=== PATIENT | female | born 1955 | race Caucasian/White ===

== ENCOUNTER 2025-04-10 06:46 | Observation (INO) ==
--- NOTE | 2025-03-05 14:58 | PAT Medication Instructions ---
Medication Instructions Date of Service March 05, 2025 Home Medications acetaminophen 500 mg tablet (Tylenol Extra Strength) 500 mg PO BID atorvastatin 20 mg tablet 20 mg PO QAM buspirone 7.5 mg tablet 7.5 mg PO BID turmeric 400 mg capsule 400 mg PO UD duloxetine 20 mg capsule,delayed release 30 mg PO QAM magnesium 500 mg tablet 15 mg PO HS multivitamin 1 tab PO .QOD nystatin 1 billion unit oral powder 1 unit PO DAILY STOP taking 2 weeks before surgery (or as soon as possible if surgery is within 2 weeks) turmeric 400 mg capsule 400 mg PO UD STOP taking 24 hours before surgery nystatin 1 billion unit oral powder 1 unit PO DAILY DO NOT take the morning of surgery multivitamin 1 tab PO .QOD Take morning of surgery With a small sip of water, OTHERWISE NOTHING TO EAT OR DRINK AFTER MIDNIGHT: acetaminophen 500 mg tablet (Tylenol Extra Strength) 500 mg PO BID atorvastatin 20 mg tablet 20 mg PO QAM buspirone 7.5 mg tablet 7.5 mg PO BID duloxetine 20 mg capsule,delayed release 30 mg PO QAM Take evening before surgery acetaminophen 500 mg tablet (Tylenol Extra Strength) 500 mg PO BID buspirone 7.5 mg tablet 7.5 mg PO BID magnesium 500 mg tablet 15 mg PO HS Other Notes If you have any questions please call us at [phone] or [phone] or [phone] or [phone]
--- NOTE | 2025-03-18 09:08 | Anesthesiology Consultation ---
Date of Service March 18, 2025 Assessment & Plan (1) Encounter for pre-operative examination: - hyponatremia at 128. Patient made aware at [facility] would need PCP optimization response if Na was below 130 and she states she checks the portal-optimization form to be faxed to [facility] PCP. Surgeon's office made aware. - PCP office visit 02/28/25 [facility]: "...persistent rash in skin folds...below her belly and under her breasts...intertrigo...nystatin powder recommended for its different antifungal properties...hip replacement..." - patient requests a private room if possible and to not be last case of the day. I listened to her requests and advised private rooms cannot be determined until day of surgery and that case order is to surgeon's determination. I advised I sent messages to the OR and surgeon's office for both requests. She expressed appreciation, denied additional questions or concerns. Chart Review Chart Review: Pending: Refer to Additional Notes / Consult section and Patient seen in Pre Admission Testing Teaching & Discussion Pre-Anesthesia Teaching/Discussion Notes: Instructed NPO after midnight before surgery, except medications with 15 cc of water. Medication instructions provided according to the [facility] guidelines. History Surgery Operation Date: 04/10/25 07:00 Proposed Procedures p Right Total Hip Arthroplasty - Flakito Webber MD Height/Weight Height: 5 ft 4 in Weight: 94 kg Allergies Allergy/AdvReac Type Severity Reaction Status Date / Time NSAIDS (Non-Steroidal AdvReac Severe patient Verified 03/18/25 10:25 Anti-Inflamma states was told to limit use after [facility] Medications Home Medications Medication Instructions Recorded Confirmed Last Taken acetaminophen 500 mg tablet 500 mg PO BID 06/25/24 03/03/25 07/16/24 (Tylenol Extra Strength) atorvastatin 20 mg tablet 20 mg PO QAM 06/25/24 03/03/25 07/16/24 buspirone 7.5 mg tablet 7.5 mg PO BID 06/25/24 03/03/25 07/16/24 turmeric 400 mg capsule 400 mg PO UD 06/25/24 03/03/25 07/16/24 duloxetine 20 mg capsule,delayed 30 mg PO QAM 01/10/25 03/03/25 Unknown release magnesium 500 mg tablet 15 mg PO HS 03/03/25 03/03/25 Unknown multivitamin 1 tab PO .QOD 03/03/25 03/03/25 Unknown nystatin 1 billion unit oral powder 1 unit PO DAILY 03/03/25 03/03/25 Unknown Additional Notes: She was instructed to continue oral prednisone as prescribed by PCP for rash. Surgeon's office made aware. Past Medical History Medical History Anemia mild- pt unsure if still anemic Anxiety Arthritis Depression Dyslipidemia History of COVID-19 (~2020) Jul 2021-denies hospitalization-symptoms resolved History of MRSA infection (~2004) after basal cell cancer excision of back Hx of nonmelanoma skin cancer multiple-removed Hyponatremia chronic, monitored by PCP Rash groin area and abdominal/ breast skin folds, r/t heat, improving since started nystatin 03/07/25 visit w/ pcp-resolved as of 03/18/25 per pt Patient denies h/o stroke, seizures, heart attack, heart failure, DM, HTN, blood clots/DVTs or blood transfusions. Exercise / Class Metabolic Activity III < 4 Walking/Shop/Light housework (denies chest discomfort or shortness of breath with usual activities) Past Family History Family History Grandmother Diabetes Past Surgical History Surgical History History of blepharoplasty History of bronchoscopy 2018 History of colonoscopy History of tonsillectomy History of total bilateral knee replacement (~2002) Hx of left cataract extraction Hx of right cataract extraction [place] teeth extracted Past Anesthesia History No Hx of Anesthesia Complications and No Family Hx of Anesthesia Complications History of PONV No Hx of PONV and No Hx of Motion Sickness Social History Smoking Status: Never smoker Do You Dip or Chew Tobacco: No Hx Alcohol Use: Yes Alcohol type: wine alcohol intake frequency: 0-2 drinks per day Hx Substance Use: No substance use type: does not use Review of Systems Snoring, denies witnessed apneas. Patient denies chest pain, shortness of breath, dyspnea on exertion, reflux, fever, chills, cough, wheezing, or palpitations. Physical Exam Vital Signs Vitals BP 131/79 P 71 TEMP 36.8 SP02 100% on RA RESP 18 Physical Patient resting comfortably in chair in no acute distress, alert and oriented, responding appropriately throughout visit Full cervical extension range of motion without pain TMD 3.5 finger breadths Mallampati Score 2 Dentition: several crowns and implants, denies chipped or loose teeth, or bridges Lungs: normal respiratory effort. Good air movement, clear throughout to auscultation, no adventitious breath sounds Cardiac: regular rate and rhythm, no murmurs noted Carotid arteries: negative bruit bilat Lab Results Anesthesia Preop Results Results Anesthesia Widget: WBC 3.69 K/ul (4.8-10.8) L 03/18/25 Hgb 11.9 g/dl (12.0-16.0) L 03/18/25 Hct 34.5 % (37.0-47.0) L 03/18/25 Plt 252 K/uL (130-400) 03/18/25 Na 128 mmol/L (136-145) L 03/18/25 K 4.7 mmol/L (3.5-5.1) 03/18/25 Cl 94 mmol/L (98-107) L 03/18/25 CO2 30 mmol/L (21-32) 03/18/25 BUN 16 mg/dl (6-23) 03/18/25 Creat 0.84 mg/dl (0.6-1.2) 03/18/25 Glucose Level 92 mg/dl (70-99(Fasting)) 03/18/25 PT 10.1 Seconds (9.0-12.0) 03/18/25 PTT 28 Seconds (21-31) 03/18/25 INR 0.9 (0.9-1.1) 03/18/25 Blood Type O Positive 03/18/25 Antibody Screen NEGATIVE 03/18/25 Testing Electrocardiogram Date: 01/21/25 NSR, rate 75 bpm Chest X-Ray Date: 03/18/25 No acute cardiopulmonary findings. Other Testing Abdomen pelvis CT 10/09/24 No acute abnormality is appreciated Advanced osteoarthritis of the right hip joint with irregularity and osteonecrosis about the articular surface of the femoral head with subchondral cyst and subchondral sclerosis, significantly worsened than 06/21/2019. L4-5 and L5-S1 degenerative disc disease. Mild chronic anterolisthesis L3 on L4. New mild anterolisthesis L4 on L5.
--- NOTE | 2025-04-04 18:00 | History & Physical Report ---
Date of Service April 04, 2025 Assessment & Plan (1) Arthritis of right hip: 69-year-old female with advanced right hip arthritis status post bilateral knee replacements along with history of ankle arthritis. She has failed conservative treatment. A truly affecting her quality life and ability maintain an active lifestyle. She like to have her hip fixed. Plan: We are going to take her to the operating room do a right total hip replacement for the risks benefits of this procedure planed. Informed consent was obtained. Will plan on using aspirin for DVT prophylaxis. She does live by herself and may need some help for a period of time. Get social services assistant involved postoperatively. She does have a history of hyponatremia and will have to [facility] follow her sodium closely. (2) Nonmelanoma skin cancer: (3) Dyslipidemia: (4) Depression: (5) Anxiety: (6) Anemia: History of Present Illness Chief Complaint: . Right hip pain. Primary Care Provider: Bianca Woo DO . Patient 69-year-old female [place] who presents for treatment of her right hip. She has a year history of increasing right hip pain discomfort describes gotten worse over time. She does have a history of bilateral knee replacement done about 20 years ago. These are done pretty well. She also has some chronic ankle problems and managed by special surgery. Over the past year she developed increased pain discomfort in her right hip. She enjoys walking but less able to do this due to groin and thigh in the leg pain. She has been through extensive conservative treatment including chiropractic treatment and physical therapy without any relief. She is looking to have her hip fixed. Allergies Allergy/AdvReac Type Severity Reaction Status Date / Time NSAIDS (Non-Steroidal AdvReac Severe patient Verified 03/18/25 10:25 Anti-Inflamma states was told to limit use [facility] Home Medications Medication Instructions Recorded Confirmed Type acetaminophen 500 mg tablet 500 mg PO BID 06/25/24 03/03/25 History (Tylenol Extra Strength) atorvastatin 20 mg tablet 20 mg PO QAM 06/25/24 03/03/25 History buspirone 7.5 mg tablet 7.5 mg PO BID 06/25/24 03/03/25 History turmeric 400 mg capsule 400 mg PO UD 06/25/24 03/03/25 History duloxetine 20 mg capsule,delayed 30 mg PO QAM 01/10/25 03/03/25 History release magnesium 500 mg tablet 15 mg PO HS 03/03/25 03/03/25 History multivitamin 1 tab PO .QOD 03/03/25 03/03/25 History nystatin 1 billion unit oral powder 1 unit PO DAILY 03/03/25 03/03/25 History Past Med/Surg History Problem List Arthritis of right hip Nonmelanoma skin cancer (Chronic) Actinic keratosis (Chronic) Medical History SIADH (syndrome of inappropriate ADH production) History of MRSA infection (~2004) after basal cell cancer excision of back Rash groin area and abdominal/ breast skin folds, r/t heat, improving since started nystatin 03/07/25 visit w/ pcp-resolved as of 03/18/25 per pt Dyslipidemia Hx of nonmelanoma skin cancer multiple-removed Arthritis Depression Anxiety Anemia mild- pt unsure if still anemic History of COVID-19 (~2020) Jul 2021-denies hospitalization-symptoms resolved Surgical History History of bronchoscopy 2018 Hx of left cataract extraction Hx of right cataract extraction History of colonoscopy [place] teeth extracted History of blepharoplasty History of total bilateral knee replacement (~2002) History of tonsillectomy Family History Grandmother Diabetes Social History Smoking Status: Never smoker Second Hand Exposure: No; Do You Dip or Chew Tobacco: No; Hx Alcohol Use: Yes Alcohol type: wine Hx Substance Use: No Preferred Language: Dominican Communication Ability: Effective Hearse Driver Required: No Beliefs That Will Affect Care: None Current Living Situation: Alone Feels Safe at Home: Yes Assistive Devices: Cane Review of Systems All systems reviewed & are unremarkable except as noted in HPI & below. Physical Exam . Physical examination was a pleasant middle-age female looks in pretty good health. Examination of the right hip reveals patient ambulates with a limp. Leg lengths appear pretty equal. Maybe half a centimeter short on the right side. Got very stiff hip with internal rotation to neutral which recreates her pain. Negative straight leg raise. She is neurologically intact. Knee replacement on the right shows a well-healed incision. No swelling. Range of motion 0-1 20. Neurologically intact. Constitutional WD/WN, vitals as above Respiratory normal respiratory effort, lungs clear to auscultation Cardiovascular RRR, no murmur, no edema Gastrointestinal (Abdomen) normal bowel sounds, soft, nontender, no hepatosplenomegaly Results & Data Results & Data Laboratory Results . Diagnostic Findings . X-ray of the right hip were reviewed. That shows advanced right hip arthritis. She got complete loss of the superior joint space. She has cystic changes on both sides of the joint. PG Care Time/CCT Total # of Minutes Spent Total Time Spent with Patient: Total time spent is greater than 50% in coordination of care (as documented) at patient's floor/unit and/or counseling patient: Coding Level of Care Code None Diagnoses Arthritis of right hip M16.11 Nonmelanoma skin cancer C44.90 Dyslipidemia E78.5 Depression F32.A Anxiety F41.9 Anemia D64.9
[~2025-04-10 06:46] MED LIST: BUPIVACAINE 0.5 % 5 MG/1 ML PF 10ML VIAL ONE
--- NOTE | 2025-04-10 07:17 | History & Physical Bridge Note ---
Date of Service April 10, 2025 History & Physical Bridge Note I have examined the patient, reviewed the History & Physical and in the interval since the performance of the History & Physical I have noted the following changes of clinical significance: no changes noted
[2025-04-10] MEDS: LR 500ML BOLUS, THEN 15ML/HR IV SCH (07:34)
[2025-04-10] MEDS: ACETAMINOPHEN 500 MG TAB PO SCH ×2 (07:34→14:43)
[2025-04-10] MEDS: LR 60ML/HR IV SCH (07:34)
[2025-04-10] MEDS: FAMOTIDINE 20 MG TAB PO SCH (07:34)
[2025-04-10] MEDS: dexAMETHasone**PF** 10 MG/ML VIAL ONE (07:35)
[2025-04-10] MEDS ORDERED: MIDAZOLAM HCL 1 MG/ML 2ML VIAL ONE (07:52)
[2025-04-10] MEDS ORDERED: PROPOFOL IV EMULSION 10 MG/ML 20 ML VIAL IV ONE ×2 (07:53→10:50)
[2025-04-10] MEDS ORDERED: ATROPINE SULFATE 0.1 MG/ML 10ML SYR IV PRN (08:20)
[2025-04-10] MEDS ORDERED: ONDANSETRON INJ 2 MG/ML 2 ML VIAL IV PRN ×2 (08:20→12:39)
[2025-04-10] MEDS: TRANEXAMIC ACID / 0.7% NACL 1,000 MG/100 ML BAG IV ONE (09:16)
[2025-04-10] MEDS ORDERED: PHENYLEPHRINE 100MCG/ML 5ML SYR ONE ×2 (09:54→10:38)
[2025-04-10] MEDS: ROPIV 0.5% 246mg, Ketorolac 30mg, EPINEPHrine 0.5mg in NSS INFIL SCH (10:17)
[2025-04-10] MEDS: BUPIVACAINE/EPINEPHRINE 0.5% MPF 1:200,000 30 ML VIAL ONE (10:17)
[2025-04-10] MEDS ORDERED: ONDANSETRON INJ 2 MG/ML 2 ML VIAL ONE (10:57)
--- NOTE | 2025-04-10 11:23 | Operative Report ---
PG Post Operative Report Pre & Post Diagnosis Operation Date: 04/10/25 08:50 Pre-Op Diagnosis: Right Hip Osteoarthritis Post-Op Diagnosis: Right Hip Osteoarthritis I identified the patient and participated in the time-out.: Yes Procedure Operation Date: 04/10/25 08:50 Actual Procedures p Right Total Hip Arthroplasty, Uncemented(Right) - Flakito Webber MD Surgeon Flakito Webber MD Executive Vice President Of Sales Manjinder Gonzalez PA-C; Taylor Perez PA-C Estimated Blood Loss 100 Findings Consistent with Post-Op Diagnosis Specimens Right femoral head sent for pathology. Anesthesia Type Spinal MAC Complications none Disposition Accompanied Patient To Recovery: No Indications The patient is a 69-year-old female whose had a gradual progressive increasing right hip pain discomfort is gotten significant worse over the past year. She failed conservative measures. X-rays show advanced right hip arthritis. She would like to proceed with total hip arthroplasty. Description of Procedure Operative implants consist of: 1 Biomet G7 size 48 mm acetabular shell. 2. 6.5 cancellous acetabular screws 1 of 25 mm length and 1 of 35 mm length. 3. Parkin hole ob/gyn doctor. 4. Highly cross-linked polyethylene liner with a 48 mm outer diameter 32 mm inner diameter. 5. DePuy Karaya size 11 KLA femoral stem. 6. +5/32 mm ceramic articular ball. The patient was taken to the op room, identified, placed on the operating table in the supine position. All conductors were appropriately padded. IV antibiotics were by anesthesia team. A spinal anesthetic been implemented holding area. A Carlos catheter was placed in sterile fashion. The patient was then placed in the left lateral cubitus position. An axillary roll was placed. A stool Birkett position was used for positioning. The right hip and leg were then prepped and draped in usual sterile fashion. A posterior lateral approach to the right hip was then performed through a curvilinear incision centered over the greater trochanter. Sharp dissection was carried through subcutaneous tissue down to the IT band gluteal fascia. The IT band gluteal fascia was sized longitudinally in line with skin incision. The underlying greater bursa was excised. The piriformis and external rotators along with the posterior joint capsule were then released from the posterior aspect of the hip as a single layer. Great care was taken throughout the procedure protect the sciatic nerve at all times. The hip was internally rotated and dislocated. A femoral neck osteotomy cut was made with Final Cut about 10 mm above the lesser trochanter. Femoral head was removed and sent for pathology. The femur was retracted anteriorly. Attention then drawn to the acetabulum. The acetabular labrum was excised. The Pulvinal fat was excised. Sequential reaming the acetabular was then performed beginning with a size 43 and progressing up to. 47. I then reamed a little with the 48 reamer and placed a 48 mm Biomet acetabular shell in about 4 degrees lateral opening and 20 degrees of anteversion. It was fixed with two 6.5 screws. A trial liner was placed. Attention drawn the femur. The proximal femur was entered with cookie-cutter followed by canal finder. I then broached began size 8 and progressing up to 11. We got excellent fit 11. I then trialed the hip with a +5 articular ball. The hip was fully stable in all positions. Leg lengths. Equal and soft tissue tension was appropriate. I elected to place these implants. All trial implants were removed. An apex hole ob/gyn doctor was placed. Highly cross-linked polyethylene liner was placed. A size 11 KLA femoral stem was impacted in position. A +5/32 mm ceramic articular ball was placed. Hip was located and once again found to be stable. Attention drawn toward closing. The wound was irrigated cosigns pulsatile lavage solution. I did inject locally with 60 cc of half percent Marcaine with epinephrine. The posterior capsule and external rotators were then repaired to drill holes in the posterior trochanter with #2 Tycron suture. The IT band gluteal fascia was then closed in 1 PDS suture in a running fashion the subcutaneous tissue was then closed with 2 layers with a deep layer #2 Vicryl suture subcutaneous tissues with 2-0 Dexon suture in a buried interrupted fashion. Skin was closed with skin harlan. A Prevena direct dressing was applied. The patient was then transferred to the recovery room in stable condition. Patient tolerated procedure well and there are no complications. Manjinder Gonzalez, and Taylor Perez, both physician assistants, were present for the entire procedure. Their assistance was required for proper patient positioning, prepping and draping, surgical exposure, retraction, form the technical details of the operation, placement of the implants, closure of the incision site, and placement of the postoperative sterile bandage. I attest to the content of the Intraoperative Record and any orders documented therein. Any exceptions are noted below.
--- NOTE | 2025-04-10 11:32 | Anesthesiology Progress Note ---
Date of Service April 10, 2025 Anesthesia Post Procedure Vital Signs Vital Signs: Temp Pulse Resp BP Pulse Ox O2 Del Method 04/10/25 07:14 36.9 C 74 18 130/75 96 Room Air Notes Mental Status: alert / awake / arousable Patient Amnestic to Procedure: Yes Nausea / Vomiting: adequately controlled Pain: adequately controlled Airway Patency, RR, SpO2: stable & adequate BP & HR: stable & adequate Hydration State: stable & adequate Neuraxial Anesthesia: was administered Anesthetic Complications: no major complications apparent
--- NOTE | 2025-04-10 11:36 | XRay Report ---
XR hip 1V RT w pelvis CLINICAL HISTORY: Postoperative evaluation. COMPARISON: Right hip radiographs January 10, 2025. FINDINGS: Alignment of the total right hip arthroplasty is anatomic. There is no periprosthetic frac ture or unexpected radiopaque foreign body. There are skin harlan. Two acetabular screws are in plac e. IMPRESSION: Expected findings following total right hip arthroplasty. ACT 112: Negative or not required by law. Electronically signed by: Timi Phan M.D. 04/10/2025 11:34 AM
[2025-04-10] MEDS ORDERED: NON-FORMULARY MEDICATION (Turmeric 400 mg Capsule) PO SCH (12:39)
[2025-04-10] MEDS ORDERED: NON-FORMULARY MEDICATION (Multivitamin Tablet) PO SCH (12:39)
[2025-04-10] MEDS ORDERED: NALOXONE HCL 0.4 MG/1 ML VIAL/CARP IV PRN (12:39)
[2025-04-10] MEDS ORDERED: METOCLOPRAMIDE HCL INJ 5 MG/ML 2 ML VIAL IV PRN (12:39)
[2025-04-10] MEDS ORDERED: ALUMINUM/MAGNESIUM SUSP 30 ML UDC PO PRN (12:39)
[2025-04-10] MEDS ORDERED: HYDROmorphone INJ 0.5 MG/0.5 ML SYR IV PRN (12:39)
[2025-04-10] MEDS ORDERED: MAGNESIUM HYDROXIDE SUSP 30 ML UDC PO PRN (12:39)
[2025-04-10] MEDS: DEXAMETHASONE SOD INJ 4 MG/ML VIAL IV STA (12:52)
[2025-04-10] MEDS: SODIUM CHLORIDE 0.9% 1,000 ML IV SCH (12:53)
[2025-04-10] MEDS: KETOROLAC TROMETHAMINE 15 MG/ML VIAL IV SCH (13:04)
[2025-04-10] MEDS ORDERED: ACETAMINOPHEN 500 MG TAB PO SCH (14:00)
[2025-04-10] MEDS: TRANEXAMIC ACID / 0.7% NACL 1,000 MG/100 ML BAG IV SCH (17:33)
[2025-04-10] MEDS: ASCORBIC ACID 500 MG TAB PO SCH (17:33)
[2025-04-10] MEDS: ASPIRIN 81 MG ECTAB PO SCH (19:47)
[2025-04-10] MEDS: MAGNESIUM OXIDE 400 MG TAB PO SCH (19:48)
[2025-04-10] MEDS: DOCUSATE SODIUM 100 MG CAP PO SCH (20:07)
[2025-04-10] MEDS: SENNA 8.6 MG TAB PO SCH (20:07)
[2025-04-10] MEDS ORDERED: SENNA 8.6 MG TAB PO SCH (21:00)
--- NOTE | 2025-04-11 07:24 | Surgery Progress Note ---
Date of Service April 11, 2025 Assessment & Plan (1) History of right hip replacement: Plan: 69-year-old female postop day 1 from a right hip replacement doing well. Pain is controlled. Hips located. She is neurologically intact. She was a bit hyponatremic preoperatively and we will recheck her sodium this morning. She is hoping to go to rehab for a brief [facility] facility stay at [facility] if possible as she lives alone. Plan: 1. DVT prophylaxis including thigh-high teds, SCDs, aspirin twice a day. 2. PT/OT. Weight-bear as taught. Right total hip protocol. 3. Pain control. Doing well with current pain regimen. 4. Disposition. She is hoping to go to [facility] for a brief rehab stay. Will get social problems specialist working on that. # 5 History of hyponatremia. Will check her sodium this morning. (2) Hyponatremia: Admission and Anticipated Discharge Date Admission Date: April 10, 2025 Subjective 69-year-old female postop day 1 from a right uncemented hip replacement. She is doing pretty well this morning. Had a reasonable sleep. Having some soreness in the hip but manageable. No chest pain or shortness of breath. She is hoping to go to [facility] for a brief rehab visit as she lives alone. Physical Exam Physical Exam: Physical examination was a pleasant middle-age female. She is lying in bed looks pretty comfortable this morning. Examination of the right hip and leg reveals the Prevena VAC dressing to be in place. Leg lengths are equal. Thigh is soft and supple. Hips located. She is neurologically intact. Respiratory: normal respiratory effort, lungs clear to auscultation Cardiovascular: RRR, no murmur, no edema Gastrointestinal (Abdomen): normal bowel sounds, soft, nontender, no he patosplenomegaly Results & Data Vital Signs (Past 12 Hours) Vital Signs Temp Pulse Resp BP BP Pulse Ox O2 Del Method 04/11/25 04:08 36.4 C L 70 18 127/74 97 Room Air 04/10/25 23:59 36.3 C L 70 18 122/69 97 Room Air 04/10/25 20:00 36.6 C 67 18 135/80 96 Room Air Laboratory Results Labs are pending. PG Care Time/CCT Total # of Minutes Spent Total Time Spent with Patient: Total time spent is greater than 50% in coordination of care (as documented) at patient's floor/unit and/or counseling patient: Coding Level of Care Code 47249 Post Operative Follow-Up Diagnoses History of right hip replacement Z96.641 Hyponatremia E87.1
[2025-04-11 07:44] LABS: Hematocrit (blood only) 29.7 % (37.0-47.0); Hemoglobin 10.2 g/dl (12.0-16.0); Immature Granulocytes # (auto) 0.06 K/uL (0.01-0.20); Immature Granulocytes % (auto) 0.7 %; Mean Corpuscular Hemoglobin 31.9 pg (25.0-34.0); Mean Corpuscular Volume 92.8 fL (80.0-100.0); Platelet Count 247 K/uL (130-400); RDW Standard Deviation 39.9 fL (36.4-46.3); Red Blood Count 3.20 M/uL (4.20-5.40); White Blood Count 8.64 K/ul (4.8-10.8)
[2025-04-11 08:02] LABS: Anion Gap 6.0 (3-11); Blood Urea Nitrogen 25.0 mg/dl (6-23); Calcium 9.2 mg/dl (8.6-10.3); Carbon Dioxide 26.0 mmol/L (21-32); Chloride 96.0 mmol/L (98-107); Creatinine Clr Calc Pharmacy 57.3 ml/min; Glucose 112.0 mg/dl (70-99(Fasting)); Potassium 3.9 mmol/L (3.5-5.1); Sodium 128.0 mmol/L (136-145)
[2025-04-11 08:07] VITALS: PULSE 67; RESP 20
[2025-04-11] MEDS: dexAMETHasone 10 MG in SYRINGE 0 ML IV SCH (09:47)
[2025-04-11] MEDS: MULTIVITAMIN TAB PO SCH (09:48)
[2025-04-11] MEDS: ATORVASTATIN 20 MG TAB PO SCH (09:48)
[2025-04-11 12:11] VITALS: BP 136/76; TEMP 97.2; O2SAT 97
== END 2025-04-11 15:00 ==
LOC: ASU 06:46 → 3W 06:46